=== PATIENT | male | born 1990 | race Caucasian/White ===

== ENCOUNTER 2023-11-27 07:57 | Day surgery (SDC) | payer OTHER, SELFPAY ==
[2023-11-21 15:00] VITALS: BMI 24.6
--- NOTE | 2023-11-23 15:14 | P.CONAN_ITS ---
Documented by User: Mitzi Flores NP 11/23/23 15:15 HPI - Anesthesia Eval Consult details Narrative: 33yo M for Right Cataract Extraction IOL Insertion Medically cleared No previous cataract on record [facility] Past Medical History Medical History Type 1 diabetes mellitus Seasonal allergies Raynaud's disease Microalbuminuria HTN (hypertension) Edema Diabetic retinopathy Diabetic neuropathy Chronic low back pain Cataract CKD (chronic kidney disease) Anemia Surgical History Surgical History Hx of non-cataract eye surgery Social History Social History Patient Tobacco Use Status: Former Tobacco user Use of substances other than those prescribed or required for medical reasons: Yes Substance Use Type: Marijuana Advance Directives: No Advance Directives Information Provided: Yes Meds Allergies Allergy/AdvReac Type Severity Reaction Status Date / Time No Known Allergies Allergy Verified 11/27/23 10:02 Home Medications ?Medication ?Instructions ?Recorded ?Confirmed ?Last Taken ?Type Humalog KwikPen Insulin 11/21/23 Unknown History amlodipine 10 mg tablet 10 mg PO BEDTIME 11/21/23 11/21/23 Unknown History carvedilol 12.5 mg tablet 12.5 mg PO 11/21/23 Unknown History furosemide 40 mg tablet 40 mg PO BID 11/21/23 11/21/23 Unknown History insulin glargine 100 unit/mL (3 unit subcut 11/21/23 Unknown History mL) subcutaneous pen (Lantus Solostar U-100 Insulin) lisinopril 10 mg tablet 10 mg PO DAILY 11/21/23 11/21/23 Unknown History pregabalin 25 mg capsule 25 mg PO BID 11/21/23 11/21/23 Unknown History quetiapine 25 mg tablet 25 mg PO BEDTIME 11/21/23 11/21/23 Unknown History sodium polystyrene sulfonate PO 11/21/23 11/21/23 Unknown History Exam Height,Weight and Vital Signs: Height 5 ft 1.02 in Weight 59 kg Assessment and Plan Assessment Anesthesia Assessment: Chart Reviewed Documented by User: Lillie Castrejon MD 11/27/23 10:10 [facility] Past Medical History Medical History Type 1 diabetes mellitus Seasonal allergies Raynaud's disease Microalbuminuria HTN (hypertension) Edema Diabetic retinopathy Diabetic neuropathy Chronic low back pain Cataract CKD (chronic kidney disease) Anemia Surgical History Surgical History Hx of non-cataract eye surgery History of Problems with Anesthesia: No Social History Social History Patient Tobacco Use Status: Former Tobacco user Use of substances other than those prescribed or required for medical reasons: Yes Substance Use Type: Marijuana Advance Directives: No Advance Directives Information Provided: Yes Meds Allergies Allergy/AdvReac Type Severity Reaction Status Date / Time No Known Allergies Allergy Verified 11/27/23 10:02 Home Medications ?Medication ?Instructions ?Recorded ?Confirmed ?Last Taken ?Type Humalog KwikPen Insulin 11/21/23 Unknown History amlodipine 10 mg tablet 10 mg PO BEDTIME 11/21/23 11/21/23 Unknown History carvedilol 12.5 mg tablet 12.5 mg PO 11/21/23 Unknown History furosemide 40 mg tablet 40 mg PO BID 11/21/23 11/21/23 Unknown History insulin glargine 100 unit/mL (3 unit subcut 11/21/23 Unknown History mL) subcutaneous pen (Lantus Solostar U-100 Insulin) lisinopril 10 mg tablet 10 mg PO DAILY 11/21/23 11/21/23 Unknown History pregabalin 25 mg capsule 25 mg PO BID 11/21/23 11/21/23 Unknown History quetiapine 25 mg tablet 25 mg PO BEDTIME 11/21/23 11/21/23 Unknown History sodium polystyrene sulfonate PO 11/21/23 11/21/23 Unknown History Exam Airway Mallampati Class: II TM Dist: >3cm Neck ROM: Full Loose/Missing/Broken Teeth: No Heart: RRR Lungs: CTA Assessment and Plan Assessment Anesthesia Assessment: Anesthesia Plan Discussed Final Anesthetic Review History of Problems with Anesthesia: No NPO: Yes ASA Class: III Final Preanesthetic Review: Meds/Allgs Chart Reviewed, Consent Obtained/Reviewed and Anes Risks/Benef Reviewed Patient Risk: Intermediate Procedure Risk: Low Anesthetic Plan Anesthetic Plan: MAC: Disposition: Standard PACU
--- NOTE | 2023-11-27 09:19 | PC.NURSE ---
Patient alerted staff in the hallway that his sugar was 66. He was feeling a little sweaty. Dr. Campa updated and okay for patient to drink 1/2 glass apple juice. Patient then brought into [facility] and bag 50 ML 5% dextrose hung per dr. campa. POC will be re-assessed. VS WNL. Patient noted to be pale and slightly diaphoretic. Will continue to monitor.
[2023-11-27 09:33] VITALS: BP 112/72; PULSE 63; RESP 18; TEMP 36.8; O2SAT 97
[2023-11-27] MEDS: Tetracaine HCl/PF 0.5% Oph Sol 4 ML DROPS 1 DROP EYE-RIGHT (10:09)
[2023-11-27] MEDS: Ketorolac Tromethamine 0.5% Op 10 ML DROPS 1 DROP EYE-RIGHT ×3 (10:09→10:18)
[2023-11-27] MEDS: Phenylephrine HCL 2.5% Oph SoL 2 ML BOTTLE 1 DROP EYE-RIGHT ×3 (10:09→10:18)
[2023-11-27] MEDS: Lactated Ringers 500 ML 50 ML IV (10:10)
[2023-11-27] MEDS: Tropicamide 1 % Ophth Sol 3 ML BTL 1 DROP EYE-RIGHT ×3 (10:10→10:18)
[2023-11-27] MEDS: Dextrose 5 % 50 ML IV (10:10)
[2023-11-27 10:34] LABS: Glucose, Whole Blood 102 mg/dL (60-115)
--- NOTE | 2023-11-27 10:46 | PC.NURSE ---
POC re-checked and wnl. patient no longer diaphoretic and states is feeling much better.
--- NOTE | 2023-11-27 10:55 | PC.NURSE ---
POC just checked again and result was 83. Patient was using personal glucose sensor and it stated 67 and he became nervous and asked for us to check. Patient is asymptomatic.
[2023-11-27 10:57] LABS: Glucose, Whole Blood 83 mg/dL (60-115)
--- NOTE | 2023-11-27 11:08 | PC.NURSE ---
dr. campa aware of previously typed note. no interventions at this time.
--- NOTE | 2023-11-27 11:15 | MHC.SHP ---
Pre-Procedural Eval Section A - 24 Hr Update-Section A only Date of Service: 11/27/23 The patient is an INPATIENT: No Changes since office visit: No Cold of Flu in the past 2 weeks, No New Medical Problems, No Changes in Medication and No Patient answered all questions The patient has been examined within 24 hours of the surgical procedure. The History & Physical has been completed within 30 days and I have reviewed it.: Yes Section B - Complete if H&P > 30 days Chief Complaint: Age-related nuclear cataract, right eye Allergies: Allergies Allergy/AdvReac Type Severity Reaction Status Date / Time No Known Allergies Allergy Verified 11/27/23 10:02 Plan Diagnosis/Plan: Unchanged I have reviewed the history and physical and performed a pertinent physical examination on my patient. No changes have occurred unless specified. Time Spent With Patient Time: Total time managing care of this patient today ____ minutes.
--- NOTE | 2023-11-27 11:16 | P.PCNO_ITS ---
Ophthalmology Procedure Procedure Date of Service: 11/27/23 Ophthalmology Viscoelastic: Healon Duet Dual Pack Pro Ophthalmology Lenses: IOL Acrysof MP - [id number] Procedure Notes: PREOPERATIVE DIAGNOSIS: Decreased visual acuity right eye secondary to cataract and synichia POSTOPERATIVE DIAGNOSIS: Same PROCEDURE: Right cataract extraction with intraocular lens insertion with sy nicialysis SURGEON: Chad Chapin M.D. ANESTHESIA: Topical/MAC ESTIMATED BLOOD LOSS: None COMPLICATIONS: None After obtaining informed consent, the patient was brought to the operating room suite and placed in the supine position. After adequate sedation per anesthesia, topical drops of Tetracaine were given to the right eye. The eye was then prepped and draped in the usual sterile fashion. The operating room microscope was then positioned over the operative eye and a lid speculum placed. A paracentesis was created. Viscoelastic was then instilled into the anterior chamber withcompletion of a synialysis utilizing the viscoat canula. A three plane incision was then created temporally, utilizing a 2.85 mm keratome. Capsulotomy forceps were then utilized to create a circular tear capsulotomy. Hydrodissection and hydrodelineation were carried out until adequate mobilization of the nucleus occurred. Phacoemulsification was then utilized to remove the dense central nucleus followed by removal of the cortical material utilizing the automated aspiration irrigation unit. Viscoelastic was instilled into the posterior capsular bag followed by placement of a posterior chamber intraocular lens without difficulty. The residual Viscoelastic was then removed utilizing the automated IA machine. The wound was checked and found to be watertight. The patient tolerated the procedure well and the lid speculum was removed. Intracameral injection of Vigamox 0.1 mL followed by a subtenon injection of Kenalog-40 0.2 mL were administered. The patient will be seen in the a.m.
[2023-11-27 11:55] VITALS: BP 113/73; PULSE 72; RESP 16; TEMP 36.2; O2SAT 99
== END 2023-11-27 11:57 | disposition home or self-care (01) ==
PROVIDERS: PCP Internal Medicine; Visit Provider Ophthalmology
PROC: (CPT 66985; principal; 2023-11-27 10:10)
DX: H25.11 Age-related nuclear cataract, right eye (principal); H54.7 Unspecified visual loss; H21.511 Anterior synechiae (iris), right eye; E10.22 Type 1 diabetes mellitus with diabetic chronic kidney disease; I12.9 Hypertensive chronic kidney disease with stage 1 through stage 4 chronic kidney disease, or unspecified chronic kidney disease; N18.9 Chronic kidney disease, unspecified; H33.001 Unspecified retinal detachment with retinal break, right eye; E10.3593 Type 1 diabetes mellitus with proliferative diabetic retinopathy without macular edema, bilateral; H35.033 Hypertensive retinopathy, bilateral; H35.373 Puckering of macula, bilateral; H47.293 Other optic atrophy, bilateral; F32.A Depression, unspecified; F41.9 Anxiety disorder, unspecified; Z79.4 Long term (current) use of insulin; Z79.85 Long-term (current) use of injectable non-insulin antidiabetic drugs; Z87.891 Personal history of nicotine dependence
CPT/HCPCS: 66982; 82947; J2250; J3010; J3301; V2630